=== PATIENT | female | born 1960 | race African-American/Black ===

== ENCOUNTER 2017-02-11 09:26 | Emergency (ER) | payer OTHER ==
[~2017-02-11 09:26] MED LIST: BACTROBAN2% TP; CARVEDILOL25 M1 PO; CLINDAMYCIN300 M1 PO; COUMADIN7.5 MG PO; GUAIFENESIN AN118 ML PO; HIBICLENS118 ML TOP; IPRATROPIUM BROM3 M2 HHN; LAC PO; PROAIR HFA0.09 MG/A1 INH; TAM75 PO; VALSARTAN AND H1 TA3 PO
[2017-02-11 13:14] VITALS: BP 138/93
== END 2017-02-11 13:14 | disposition home or self-care (01) ==
LOC: ED 09:26
DX: J20.9 Acute bronchitis, unspecified (principal); I10 Essential (primary) hypertension; Z88.0 Allergy status to penicillin

== ENCOUNTER 2017-04-13 21:30 | Inpatient (IN) | payer OTHER ==
[~2017-04-13] VITALS: Ht 170.2 cm; Wt 112.5 kg
[2017-04-13 21:37] VITALS: Ht 170.2 cm; Wt 112.5 kg
[2017-04-13 22:36] LABS: CALCIUM 9.1 mg/dL (8.5-10.1); CARBON DIOXIDE 22.7 mmol/L (21-32); CREATININE SERUM 1.3 mg/dL (0.6-1.0); POTASSIUM SERUM 3.9 mmol/L (3.5-5.1)
[2017-04-13 22:38] LABS: BASOPHIL % 0.7 % (0-2); PLATELET COUNT 301 x10^3mcL (130-400); RED CELL DISTRIBUTION WIDTH 19.5 % (11.5-14.5)
[2017-04-13 22:43] LABS: ALBUMIN 3.4 g/dL (3.4-5.0); BILIRUBIN TOTAL 2.6 mg/dL (0.20-1.00); TOTAL PROTEIN, SERUM 6.7 g/dL (6.4-8.2)
[2017-04-14] VITALS (8 sets, daily range): BP systolic 103–149; BP diastolic 73–107
[2017-04-14 01:43] LABS: MAGNESIUM 1.9 mg/dL (1.8-2.4); PHOSPHOROUS 3.4 mg/dL (2.5-4.9)
[2017-04-14 01:45] LABS: CHOLESTEROL/HDL RATIO 6.5
[2017-04-14 01:54] LABS: FREE T4 1.67 ng/dL (0.76-1.46); FREE THYROXINE INDEX 3.6 ug/dL (1.4-4.5); T4(THYROXINE) 8.5 ug/dL (4.7-13.3)
[2017-04-14 02:53] LABS: T3 TOTAL 0.86 ng/mL
[2017-04-14 04:11] LABS: microscopic required? YES; urine erythrocyte TRACE (NEGATIVE)
[2017-04-14 04:20] LABS: AMPHETAMINE QUAL UR NONE DETECTED (NEG <=1000)
[2017-04-14 07:59] LABS: CALCIUM 9.3 mg/dL (8.5-10.1); CARBON DIOXIDE 27.5 mmol/L (21-32); CREATININE SERUM 1.2 mg/dL (0.6-1.0); POTASSIUM SERUM 3.2 mmol/L (3.5-5.1)
[2017-04-14 08:24] LABS: BASOPHIL % 0.5 % (0-2); PLATELET COUNT 297 x10^3mcL (130-400); RED CELL DISTRIBUTION WIDTH 19.6 % (11.5-14.5)
[2017-04-15 05:29] VITALS: BP 114/77
[2017-04-15 07:54] LABS: CALCIUM 8.7 mg/dL (8.5-10.1); CARBON DIOXIDE 30.8 mmol/L (21-32); CREATININE SERUM 1.2 mg/dL (0.6-1.0); MAGNESIUM 1.6 mg/dL (1.8-2.4); PHOSPHOROUS 3.9 mg/dL (2.5-4.9)
[2017-04-15 08:21] LABS: BASOPHIL % 0.3 % (0-2); PLATELET COUNT 279 x10^3mcL (130-400)
[2017-04-15 08:35] LABS: RED CELL DISTRIBUTION WIDTH 19.1 % (11.5-14.5)
[2017-04-15 09:18] VITALS: BP 96/57
[2017-04-15 09:36] VITALS: BP 114/77
[2017-04-15] MEDS ORDERED: COUMADIN5 MG PO (12:21)
[2017-04-15 12:49] VITALS: BP 113/82
[2017-04-15 17:27] VITALS: BP 102/68
== END 2017-04-15 18:49 | disposition home or self-care (01) | DRG 291 ==
LOC: ED 21:30 → DU 23:56
PROVIDERS: Emergency Medicine; Family Medicine
DX: I13.0 Hypertensive heart and chronic kidney disease with heart failure and stage 1 through stage 4 chronic kidney disease, or unspecified chronic kidney disease (principal); I50.43 Acute on chronic combined systolic (congestive) and diastolic (congestive) heart failure; E11.65 Type 2 diabetes mellitus with hyperglycemia; E11.22 Type 2 diabetes mellitus with diabetic chronic kidney disease; N18.3 Chronic kidney disease, stage 3 (moderate); E87.6 Hypokalemia; E83.42 Hypomagnesemia; K80.20 Calculus of gallbladder without cholecystitis without obstruction; I44.7 Left bundle-branch block, unspecified; E66.9 Obesity, unspecified; Z68.38 Body mass index [BMI] 38.0-38.9, adult; Z95.2 Presence of prosthetic heart valve; Z79.01 Long term (current) use of anticoagulants; Z66 Do not resuscitate
CPT/HCPCS: 83880; 84439; 87804; J1940; J3475; J3480; J7030; J7050; J7620; Q0092